=== PATIENT | male | born 1985 | race Caucasian/White ===

== ENCOUNTER 2021-02-08 21:39 | Emergency (ER) | payer OTHER ==
[~2021-02-08] VITALS: Ht 180.3 cm; Wt 56.7 kg
[2021-02-08 21:46] VITALS: BP 130/81
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
[2021-02-08] MEDS ORDERED: IBUPROFEN 600 MG TABLET ONE (21:56)
[2021-02-08] MEDS ORDERED: IBUPROFEN 600 MG TABLET PO ONE (22:00)
--- NOTE | 2021-02-08 22:01 | NUR ---
XRAY AT BEDSIDE
== END 2021-02-08 22:43 ==
LOC: ER 21:43
DX: Z02.89 Encounter for other administrative examinations (principal); M25.511 Pain in right shoulder; R07.89 Other chest pain; Z60.2 Problems related to living alone; V49.59XA Passenger injured in collision with other motor vehicles in traffic accident, initial encounter; Y93.89 Activity, other specified; Y92.413 State road as the place of occurrence of the external cause; Y99.8 Other external cause status
CPT/HCPCS: 71045-TC; 73030-TC